=== PATIENT | female | born 1995 | race Caucasian/White ===

== ENCOUNTER 2018-12-11 07:01 | Inpatient (IN) | payer MEDICAID ==
[~2018-12-11] VITALS: Ht 149.9 cm; Wt 75.0 kg
[2018-12-11] VITALS (39 sets, daily range): BP systolic 106–144; BP diastolic 52–85; PULSE 72–112; TEMP 97.4–98.8
[~2018-12-11 07:01] MED LIST: NORCO 325 MG-51 TAB PO
--- NOTE | 2018-12-11 07:15 | NUR ---
Patient ambulatory to LR 5 with significant other/his jj r, changed into gown, FHR/TOCO monitors placed and explained. Patient denies any leaking of fluid/vaginal bleeding, states she has been having random contractions, nothing regular. 0720: SVE /-2 no fluid noted. 0730: IV started in left wrist per Arya DÍAZ, blood drawn and sent to lab, and LR infusing. 0800: FHR reactive and Pitocin started at 2mU per protocol. 0850: Patient off monitor to void. 0908: Patient turns to the right and FHR difficult to trace, FHR monitor adjusted.
[2018-12-11] MEDS ORDERED: CONCEPT DHA1 CAP PO (07:42)
--- NOTE | 2018-12-11 08:25 | NUR ---
Dr. Watt at nurses station reviewing FHR strip. Dr. Watt at bedside and assessing patient at this time. 0832: SVE per physician / and AROM at this time with clear fluid noted. Orders to continue increasing pitocin.
[2018-12-11 08:33] LABS: BASO % 0.3 % (0.0-2.0); EOS # 0.1 (0.0-0.7); EOS % 0.6 % (0-4.0); GRAN # 6.7 (1.4-6.5); GRAN % 70.4 % (42.2-75.2); HEMOGLOBIN 12.3 g/dl (12.5-16.0); LYMPH # 1.9 (1.2-3.4); LYMPH % 19.7 % (20.0-51.0); MEAN CELL VOLUME 88 fl (80.0-100.0); MEAN CORPUSCULAR HEMOGLOBIN 31 pg (27.0-31.0); MEAN CORPUSCULAR HGB CONC 35 g/dl (33.0-37.0); MONO # 0.8 (0.1-0.6); MONO % 8.5 % (1.7-9.3); PLATELET COUNT 389 K/mm3 (130-400); RED BLOOD COUNT 4.01 M/mm3 (4.10-5.30); REDCELL DISTRIBUTION WIDTH-CV 14.1 % (11.5-14.5)
[2018-12-11 08:38] LABS: HEMATOCRIT 35.4 % (37.0-47.0)
--- NOTE | 2018-12-11 10:10 | NUR ---
Patient requests epidural and Mirela KIMBLE called and notified. 1011:Patient off monitor to void. 1022: Patient on birthing ball at this time.
--- NOTE | 2018-12-11 10:50 | NUR ---
Patient sit up on edge of bed for placement of epidural and Mirela DIESEL MECHANIC APPRENTICE at bedside for procedure. Difficulty tracing FHR at this time due to maternal position. 1057: Single shot given and patient tolerates well. 1126: Varible decelerations noted at this time, returning to baseline. 1135: Patient comfortble with epidural and patel catheter placed and patient tolerates well. SVE- 3/90/-2 and patient wedged left. Will continue to monitor.
--- NOTE | 2018-12-11 11:50 | NUR ---
FHR tracing subtle late/variable decelerations, patient turned left lateral. Will continue to monitor.
--- NOTE | 2018-12-11 11:58 | NUR ---
Patient turned right lateral with peanut ball in place. 1158: FHR late/variable deceleration noted at this time decreasing to 100-115bpm for 60 seconds. 1200: Dr Watt orders to continuing increasing pitocin.
--- NOTE | 2018-12-11 12:20 | NUR ---
FHR tracing subtle late/early decerlerations. Patient turned more onto right side and left leg across in stirrup.
--- NOTE | 2018-12-11 13:50 | NUR ---
FHR tracing early decelerations. Patient wedged left lateral. 1410: FHR tracing late/early decelerations and returning to baseline. 1430: Recurrent early decelerations noted and patient wedged left with peanut ball in place. Recurrent variable decelerations noted-returning to baseline. 1445: SVE-8/100/0 and patient sat up in high fowlers position with feet lowered. FHR continues to trace early deceleration. Dr. Watt called and notified.
--- NOTE | 2018-12-11 15:20 | NUR ---
FHR tracing recurrent late decelerations, returing to baseline, with moderate variability. Pateint wedged left and will continue to monitor. FHR tracing recurrent early decelerations, returning to baseline. 1527: SVE- 9-10/100/+1 and patient right lateral. 1528: FHR decreasing to 70-90bpm for approx. 3 minutes, during this time pitocin off, oxygen on via mask at 10ml/hr. 1530: SVE-10/+[address] Watt called and notified. Dr. Watt states he is on the way. 1532: FHR increasing to 120bpm. LR bolus infusing. 1533: FHR decreasing to 70-90bpm for 140seconds and patient turned left lateral and then to knees/chest position. 1535: FHR increasing to 110-115 bpm for approx 5 minutes while patient continues to stay in knees/chest position. 1542: Dr Watt at bedside and patient repositioned to back with feet in stirrups. Bed taken apart and patel catheter removed/patient tolerates well. FHR baseline 115-120bpm with moderate variability. 1545: Patient begins to push with contraction per Dr. Gonzalez order. recommends using a vacuum and patient agrees. 1546: Vacuum applied. 1547: Patient begins to push with contraction and Traction applied to vacuum. 1549: Vacuum assisted delivery of head followed by body. Infant bulbed syringed and to patient abdomen, Kyle DÍAZ assumes care of infant. Dr. Watt clamps cord and FOB cuts cord. 1551: Spontaneous delivery of placenta and pitocin bolus started per protocol, fundal massage done/firm/bleeding WNL Dr. Watt repaires 2nd degree laceration at this time. 1555: Patient repositioned and plan of care discussed. Ice pack to perineum. Fundal massage done/firm/bleeding WNL. Will continue to monitor.
--- NOTE | 2018-12-11 18:05 | NUR ---
Patient sits up on edge of bed, epidural catheter removed and patient tolerates well. Patient ambulates to bathroom, voids, pericare done, new gown/undies/pads on. Patient ambulates to room and oriented/white board gone over. Plan of care discussed.
[2018-12-12 07:35] VITALS: BP 111/65; PULSE 93; TEMP 98
--- NOTE | 2018-12-12 10:34 | NUR ---
Initial visit; Parents thanked executive recruiter for offering congratulations and God's blessings for the of their son. Chemistry Technician thanked them for choosing [facility].
[2018-12-12 15:20] VITALS: BP 113/60; PULSE 91; TEMP 98.2
[2018-12-12 20:00] VITALS: BP 123/60; PULSE 99; TEMP 98
--- NOTE | 2018-12-13 04:15 | NUR ---
C/O ONSET OF RLQ ROUND LIGAMENT AREA PAIN WHILE UP TO BR TO HAVE STOOL. CONTANT. RATES 07/04. MOTRIN AND TYLENOL 325MG GIVEN AND WARM BLANKET. SOFT TO PALPATE.
--- NOTE | 2018-12-13 05:41 | NUR ---
resting more comfortably pt states
[2018-12-13 07:09] VITALS: BP 114/68; PULSE 86; TEMP 98.1
[2018-12-13] MEDS ORDERED: MOTRIN 800800 MG/TAB PO (08:55)
[2018-12-13] MEDS ORDERED: PERCOCET 325 MG1 TA2 PO (08:55)
== END 2018-12-13 11:48 | disposition home or self-care (01) | DRG 807 ==
LOC: LDR 07:01 → OB 07:01
PROVIDERS: ADMIT Obstetrics & Gynecology
PROC: 10D07Z6 Extraction of Products of Conception, Vacuum, Via Natural or Artificial Opening (ICD-10-PCS; principal; 2018-12-11)
PROC: 0KQM0ZZ Repair Perineum Muscle, Open Approach (ICD-10-PCS; 2018-12-11)
PROC: 10907ZC Drainage of Amniotic Fluid, Therapeutic from Products of Conception, Via Natural or Artificial Opening (ICD-10-PCS; 2018-12-11)
PROC: 3E033VJ Introduction of Other Hormone into Peripheral Vein, Percutaneous Approach (ICD-10-PCS; 2018-12-11)
DX: O36.5930 Maternal care for other known or suspected poor fetal growth, third trimester, not applicable or unspecified (principal); Z37.0 Single live birth; O76 Abnormality in fetal heart rate and rhythm complicating labor and delivery; Z3A.38 38 weeks gestation of pregnancy; O70.1 Second degree perineal laceration during delivery
CPT/HCPCS: J2590; J2795; J7120

== ENCOUNTER 2019-08-31 22:33 | Emergency (ER) | payer SELFPAY ==
[~2019-08-31] VITALS: Ht 149.9 cm; Wt 68.2 kg
[~2019-08-31 22:33] MED LIST changes: +CONCEPT DHA1 CAP PO; +MOTRIN 800800 MG/TAB PO; +PERCOCET 325 MG1 TA2 PO
[2019-08-31 22:45] VITALS: BP 131/85; TEMP 98.9
[2019-09-01 00:10] VITALS: PULSE 78
== END 2019-09-01 00:10 | disposition home or self-care (01) ==
LOC: COL.ER 22:33
DX: S83.004A Unspecified dislocation of right patella, initial encounter (principal); X50.1XXA Overexertion from prolonged static or awkward postures, initial encounter

== ENCOUNTER 2020-09-05 12:08 | Emergency (ER) | payer OTHER ==
[~2020-09-05] VITALS: Ht 149.9 cm; Wt 72.7 kg
[2020-09-05 12:53] LABS: GRAN # 3.6 (1.4-6.5); GRAN % 63.5 % (42.2-75.2); HEMATOCRIT 40.5 % (37.0-47.0); HEMOGLOBIN 13.2 g/dl (12.5-16.0); LYMPH # 1.7 (1.2-3.4); LYMPH % 29.2 % (20.0-51.0); MEAN CELL VOLUME 87 fl (80.0-100.0); MEAN CORPUSCULAR HEMOGLOBIN 28 pg (27.0-31.0); MEAN CORPUSCULAR HGB CONC 33 g/dl (33.0-37.0); MEAN PLATELET VOLUME 8.6 fl (7.4-10.4); MONO # 0.4 (0.1-0.6); MONO % 6.9 % (1.7-9.3); PLATELET COUNT 233 K/mm3 (130-400); RED BLOOD COUNT 4.67 M/mm3 (4.10-5.30); REDCELL DISTRIBUTION WIDTH-CV 13.2 % (11.5-14.5)
[2020-09-05 13:05] LABS: ALBUMIN 3.9 gm/dL (3.5-5.0); BILIRUBIN,TOTAL 0.4 mg/dL (0.0-1.0); CALCIUM 8.5 mg/dL (8.4-10.2); CREATININE, serum 0.81 (0.52-1.25); POTASSIUM 3.7 mmol/L (3.4-5.0); TOTAL PROTEIN 7.4 gm/dL (6.4-8.2)
[2020-09-05 13:35] VITALS: TEMP 100.5
[2020-09-05] MEDS ORDERED: PROAIR HFA0.09 MG/AC IH (13:51)
[2020-09-05] MEDS ORDERED: ZITHROMAX Z PA250 MG PO (13:51)
[2020-09-05 14:00] VITALS: BP 124/75; PULSE 71
== END 2020-09-05 14:05 | disposition home or self-care (01) ==
LOC: COL.ER 12:08
PROVIDERS: Nurse Practitioner
DX: J40 Bronchitis, not specified as acute or chronic (principal); Z20.828 Contact with and (suspected) exposure to other viral communicable diseases; Z32.02 Encounter for pregnancy test, result negative
CPT/HCPCS: J7030

== ENCOUNTER 2021-03-07 01:03 | Emergency (ER) | payer SELFPAY ==
[~2021-03-07] VITALS: Ht 154.9 cm; Wt 77.3 kg
[~2021-03-07 01:03] MED LIST changes: +PROAIR HFA0.09 MG/AC IH; +ZITHROMAX Z PA250 MG PO
[2021-03-07 01:05] VITALS: TEMP 98.5
[2021-03-07] MEDS ORDERED: NORCO 325 MG-51 TAB PO (03:17)
[2021-03-07 03:20] VITALS: BP 118/76; PULSE 107
== END 2021-03-07 03:20 | disposition home or self-care (01) ==
LOC: COL.ER 01:03
DX: S82.51XA Displaced fracture of medial malleolus of right tibia, initial encounter for closed fracture (principal); S82.61XA Displaced fracture of lateral malleolus of right fibula, initial encounter for closed fracture; W51.XXXA Accidental striking against or bumped into by another person, initial encounter
CPT/HCPCS: J2405; J2704; J3010; J7030